=== PATIENT | male | born 1990 | race Caucasian/White ===

== ENCOUNTER 2017-09-03 09:49 | Outpatient (CLI) | payer OTHER ==
[2017-09-03 11:28] LABS: ALBUMIN 3.9 g/dL (3.4-5.0); BILIRUBIN,TOTAL 0.4 mg/dL (0.2-1.0); CALCIUM, SERUM 9.3 mg/dL (8.5-10.1); CREATININE 0.9 mg/dL (0.6-1.3); POTASSIUM 4.6 mmol/L (3.5-5.1)
== END 2017-09-03 23:59 | disposition home or self-care (01) ==
LOC: LAB 09:49
PROVIDERS: ATTEND Internal Medicine Interventional Cardiology
DX: R07.9 Chest pain, unspecified (principal)
CPT/HCPCS: 36415; 80053-TC; 82550-TC